=== PATIENT | female | born 1985 | race Two or more races ===

== ENCOUNTER 2017-12-07 21:24 | Emergency (ER) | payer SELFPAY ==
[~2017-12-07] VITALS: Ht 165.1 cm; Wt 115.8 kg
[2017-12-07] MEDS ORDERED: CYCLOBENZAPRINE 10 MG TABLET PO STA (21:59)
[2017-12-07] MEDS ORDERED: IBUPROFEN 200 MG TABLET PO ONE (22:00)
[2017-12-07] MEDS ORDERED: IBUPROFEN 200 MG TABLET ONE (22:41)
[2017-12-07] MEDS ORDERED: CYCLOBENZAPRINE 10 MG TABLET ONE (22:41)
[2017-12-07 22:45] VITALS: BP 116/56
== END 2017-12-07 23:38 | disposition home or self-care (01) ==
LOC: ED 23:35
DX: M54.12 Radiculopathy, cervical region (principal)
CPT/HCPCS: 71046; 72050; 72110; 93005; 99284